=== PATIENT | female | born 1990 | race Caucasian/White ===

== ENCOUNTER 2018-09-08 11:01 | Emergency (ER) | payer MEDICAID ==
[~2018-09-08] VITALS: Ht 162.6 cm; Wt 78.9 kg
[2018-09-08 11:16] VITALS: BP 114/67; Ht 162.6 cm; Wt 78.9 kg
== END 2018-09-08 13:00 | disposition home or self-care (01) ==
LOC: ED 11:01
DX: M54.41 Lumbago with sciatica, right side (principal); G43.909 Migraine, unspecified, not intractable, without status migrainosus; K21.9 Gastro-esophageal reflux disease without esophagitis

== ENCOUNTER 2018-09-11 16:45 | Emergency (ER) | payer MEDICAID ==
[~2018-09-11] VITALS: Ht 162.6 cm; Wt 78.5 kg
[2018-09-11 17:10] VITALS: Ht 162.6 cm; Wt 78.5 kg
[2018-09-11 17:48] LABS: UA SPECIFIC GRAVITY 1.025 (1.005-1.035); microscopic required? YES; urine erythrocyte 1+ (NEGATIVE)
[2018-09-11 17:56] LABS: AMPHETAMINE QUAL UR NONE DETECTED (See below)
[2018-09-11 17:57] LABS: CALCIUM 8.7 mg/dL (8.5-10.1); CARBON DIOXIDE 27.6 mmol/L (21-32); CHLORIDE SERUM 110 mmol/L (98-107); CREATININE SERUM 0.7 mg/dL (0.6-1.0); GFR1 > 60 mL/min; GLUCOSE SERUM 119 mg/dL (74-106); POTASSIUM SERUM 4.4 mmol/L (3.5-5.1); SODIUM SERUM 144 mmol/L (136-145)
[2018-09-11 18:06] LABS: ALBUMIN 3.5 g/dL (3.4-5.0); ALKALINE PHOSPHATASE 67 U/L (46-116); ALT/SGPT 23 U/L (14-59); AST/SGOT 19 U/L (15-37); LIPASE 194 IU/L (73-393); TOTAL PROTEIN, SERUM 7.8 g/dL (6.4-8.2)
[2018-09-11 18:07] LABS: AMYLASE 159 U/L (25-115)
[2018-09-11 18:19] LABS: BASOPHIL % 0.3 % (0-2); PLATELET COUNT 346 x10^3mcL (130-400)
[2018-09-11 18:21] LABS: RED CELL DISTRIBUTION WIDTH 20.3 % (11.5-14.5)
[2018-09-11 18:42] LABS: rbc morphology (normal/abnorm) ABNORMAL (NORMAL)
[2018-09-11 18:46] LABS: ovalocyte/elliptocyte 1+; tear drop cell (dacryocyte) 1+
[2018-09-11 19:56] VITALS: BP 107/65
== END 2018-09-11 19:56 | disposition home or self-care (01) ==
LOC: ED 16:45
PROVIDERS: Emergency Medicine
DX: R10.31 Right lower quadrant pain (principal); D64.9 Anemia, unspecified; K21.9 Gastro-esophageal reflux disease without esophagitis; G43.909 Migraine, unspecified, not intractable, without status migrainosus; M54.30 Sciatica, unspecified side
CPT/HCPCS: J1885; J2405; J7030; Q9967

== ENCOUNTER 2018-09-30 00:06 | Emergency (ER) | payer MEDICAID ==
[~2018-09-30] VITALS: Ht 162.6 cm; Wt 78.9 kg
[2018-09-30 00:11] VITALS: Ht 162.6 cm; Wt 78.9 kg
[2018-09-30 00:40] VITALS: BP 121/71
== END 2018-09-30 00:40 | disposition home or self-care (01) ==
LOC: ED 00:06
DX: M54.40 Lumbago with sciatica, unspecified side (principal); K21.9 Gastro-esophageal reflux disease without esophagitis; G43.909 Migraine, unspecified, not intractable, without status migrainosus; Z88.8 Allergy status to other drugs, medicaments and biological substances